=== PATIENT | female | born 1965 | race Caucasian/White ===

== ENCOUNTER 2022-01-11 07:56 | Day surgery (SDC) | payer MEDICARE, MEDICAID ==
[~2022-01-11] VITALS: Ht 167.6 cm; Wt 127.0 kg
[2022-01-11] VITALS (8 sets, daily range): BP systolic 106–137; BP diastolic 62–99
[~2022-01-11 07:56] MED LIST: ALBU6.7H14 INH; AMLO2.5T5 PO; ATOR20TA66 PO; CANNABIS INH; CYCL-1 PO; FLUT16SP20 BOTHNARES; LEVO175T7 PO; LISI20TA28 PO; VALA500T41 PO; ZOLP5TAB2 PO; ceFAZolin inj. 2,000 MG in dextrose 5%-water 100 ML IV ONE; famotidine 20mg tablet PO ONE; ringers solution, lacted 1,000 ML IV SCH
[2022-01-11] MEDS ORDERED: diazepam 5mg tablet PO ONE (09:55)
[2022-01-11 10:05] LABS: BASOPHILS # (AUTO) 0.1 X10'3 (0-0.2); BASOPHILS % (AUTO) 0.6 % (0-1); EOSINOPHILS % (AUTO) 0.5 % (0-6); LYMPHOCYTES # (AUTO) 2.6 X10'3 (1.1-4.8); LYMPHOCYTES % (AUTO) 28.7 % (21-51); MEAN CORPUSCULAR HEMOGLOBIN 30.5 PG (27.0-31.0); MEAN CORPUSCULAR HGB CONC 33.9 g/dL (33.0-36.5); MEAN PLATELET VOLUME 7.2 FL (7.4-10.4); MONOCYTES # (AUTO) 0.5 X10'3 (0-0.9); MONOCYTES % (AUTO) 5.7 % (2-12); NEUTROPHILS # (AUTO) 5.8 X10'3 (1.8-7.7); NEUTROPHILS % (AUTO) 64.5 % (42-75); PRE OP HEMATOCRIT 37.6 % (35.0-45.0); PRE OP HEMOGLOBIN 12.7 g/dL (12.0-16.0); PRE OP PLATELET COUNT 385 X10'3 (140-440); RED BLOOD COUNT 4.18 X10'6 (4.20-5.60); RED CELL DISTRIBUTION WIDTH 14.8 % (11.5-14.5)
[2022-01-11 10:13] LABS: ALBUMIN 3.9 G/DL (3.4-5.0); ALKALINE PHOSPHATASE 81 IU/L (46-116); BLOOD UREA NITROGEN 18 MG/DL (7-18); BUN/CREATININE RATIO 25.7 (6.6-38.0); CALCIUM 9.2 MG/DL (8.5-10.1); CHLORIDE 104 MMOL/L (99-107); PRE OP ALT 22 U/L (30-65); PRE OP ANION GAP 11 (8-16); PRE OP AST 10 U/L (10-37); PRE OP BILIRUB, TOTAL 0.3 MG/DL (0.0-1.0); PRE OP GLUCOSE 117 MG/DL (70-104); PRE OP SODIUM 140 MMOL/L (135-145); TOTAL CARBON DIOXIDE 24.8 MMOL/L (24-32); TOTAL PROTEIN 7.8 G/DL (6.4-8.2); eGFR 86 ML/MIN
[2022-01-11] MEDS ORDERED: morphine 4 MG/ML inj SYRINge IV PRN (11:25)
[2022-01-11] MEDS ORDERED: morphine 2 MG/ML inj. syringe IV PRN (11:25)
[2022-01-11] MEDS ORDERED: hydrALAZINE 20mg/ml inj. IV PRN (11:25)
[2022-01-11] MEDS ORDERED: labetalol 20mg/4ml (5mg/ml) syringe IV PRN (11:25)
[2022-01-11] MEDS ORDERED: ondansetron/PF 4mg/2ml inj IV PRN (11:25)
[2022-01-11] MEDS ORDERED: ringers solution, lacted 1,000 ML IV SCH (11:25)
[2022-01-11] MEDS ORDERED: fentaNYL/PF 50MCG/1 ML 2ML syringe IV PRN ×2 (11:25)
[2022-01-11] MEDS ORDERED: LIDOcaine 1% 30ml preserv. free vial ONE (12:20)
[2022-01-11] MEDS ORDERED: BUPIVAcaine/PF 2.5 mg/ml (0.25%) 30ml vial ONE (12:20)
[2022-01-11] MEDS ORDERED: dexamethasone sod phosphate 10mg/ml inj ONE (12:27)
[2022-01-11] MEDS ORDERED: sevoflurane 250ml liquid IH ONE (12:27)
[2022-01-11] MEDS ORDERED: midazolam 1 mg/ML 2ml injection ONE (12:31)
[2022-01-11] MEDS ORDERED: fentaNYL/PF 50MCG/1 ML 2ML syringe ONE (12:31)
[2022-01-11] MEDS ORDERED: ondansetron/PF 4mg/2ml inj ONE (12:32)
[2022-01-11] MEDS ORDERED: propofol inj 20 ML IV ONE (12:32)
[2022-01-11] MEDS ORDERED: rocuronium 10mg/ml inj IV ONE (12:32)
[2022-01-11] MEDS ORDERED: LIDOcaine 2% (20mg/ml) 5ml vial ONE (12:32)
[2022-01-11] MEDS ORDERED: sugammadex 200mg/2ml injection IV ONE (12:56)
--- NOTE | 2022-01-11 13:29 | NUR ---
Received from OR via [facility] , accompanied by Anesthesiologist KYLIE and report given by Anesthesiolgist. PATIENT WITH 20GPIV IN LEFT UE RUNNING LR AT 100. DENIES PAIN ONE LAP SITE TO UPPER ABDOMEN THAT IS CDI. VSS. Addendum: 01/11/22 at 1352 by Christofer Mendez RN, RN Amended: Links added.
[2022-01-11] MEDS ORDERED: oxyCODONE/APAP 5-325mg tablet PO PRN (13:55)
--- NOTE | 2022-01-11 14:39 | NUR ---
PATIENT WITH VSS AT THIS TIME. PATIENT DRESSING TO ANTERIOR CHEST IS CDI. (GLUE). PATIENT DRESSED WITH ASSISTANCE. PATIENT GIVEN ALL DC INSTRUCTIONS AND PATIENT VERBALIZED UNDERSTANDING OF PAPERWORK . PATIENT INSTRUCTED TO WEAR CPAP X 24 HOURS UNLESS WALKING OR EATING. PATIENT AGREED TO COMPLY. MEGHA HERNANDEZ FRIEND AGREES TO THE PLAN FOR THE CPAP AND UNDERSTANDS RATIONALE FOR ITS USE. .. DOES PATIENT. PATIENT IV TAKEN OUT WITHOUT COMPLICATIONS. OUT VIA WHEELCHAIR TO PERSONAL VEHICLE WHERE FRIEND DROVE PATIENT HOME. Addendum: 01/11/22 at 1459 by Christofer Mendez RN, RN Amended: Links added.
== END 2022-01-11 14:39 | disposition home or self-care (01) ==
LOC: PAS 07:56
PROVIDERS: ATTEND Surgery
DX: K43.0 Incisional hernia with obstruction, without gangrene (principal); I10 Essential (primary) hypertension; I25.2 Old myocardial infarction; F41.8 Other specified anxiety disorders; Z79.899 Other long term (current) drug therapy; Z98.890 Other specified postprocedural states; Z90.49 Acquired absence of other specified parts of digestive tract; Z90.710 Acquired absence of both cervix and uterus; Z87.891 Personal history of nicotine dependence; Z88.2 Allergy status to sulfonamides
CPT/HCPCS: 36415; 49561; 80053; 85025; 87811; J0690; J2250; J2405; J2704; J3010; J3490; J7030; J7060; J7120; Z7506; Z7508; Z7512; A4215; A4615; A4618; A7000; J1100